=== PATIENT | male | born 1975 | race Caucasian/White ===

== ENCOUNTER 2024-01-19 20:47 | Emergency (ER) | payer OTHER, SELFPAY ==
[2024-01-19 20:48] VITALS: BP 152/90; PULSE 61; RESP 15; TEMP 36.7; O2SAT 100; BMI 25.7
--- NOTE | 2024-01-19 21:03 | CT_ITS ---
STUDY: CT ABDOMEN AND PELVIS WITHOUT CONTRAST REASON FOR EXAM: Male, 48 years old. RT FLANK PAIN RADIATION DOSAGE (If Supplied By Facility): CTDIvol = ( 6.90 ) mGy, DLP = ( 353.33 ) mGycm TECHNIQUE: Transaxial images were obtained from the dome of the diaphragm to the symphysis pubis without oral contrast, and without intravenous contrast. Sagittal and coronal images were reconstructed. Individualized dose optimization techniques were used for this CT. COMPARISON: None. FINDINGS: The visualized lung bases are unremarkable. The visualized portions of the heart are within normal limits. Normal liver. Normal gallbladder and extrahepatic biliary system. Normal spleen. Normal pancreas. Normal bilateral adrenal glands. Hydronephrosis of the right kidney with right hydroureter. Normal left kidney. Normal visualized stomach. Normal small intestine. Diverticulosis of the colon. The appendix is visualized and appears normal. Normal abdominal aorta. Normal inferior vena cava. Normal retroperitoneum. Wall thickening of the urinary bladder. 2 mm stone at the right UVJ. Normal abdominal wall. Normal osseous structures. CT/Abdomen/Pelvis without Cont IMPRESSION: Hydronephrosis of the right kidney with right hydroureter. Obstructive stone at the right UVJ. Wall thickening of the urinary bladder. Colonic diverticulosis. Electronically Signed: Cecilio Peraza DO at 22:09 EDT ,
--- NOTE | 2024-01-19 21:05 | EDS_ITS ---
HPI <COLLIN Peres - Last Filed: 01/19/24 22:13> History of Present Illness Chief Complaint: Flank Pain Narrative Narrative: 48-year-old male with no significant past medical history states around 1 PM he developed right flank pain that gradually worsened throughout the evening and is starting to wrap around the right side. He initially took Tums thinking it could be indigestion but this had no effect. He has no fever or chills, nausea or vomiting, or urinary symptoms. He reports a history of urethral stricture that was treated with a catheter by Dr. Durán in the past but has had no issues urinating since then. No history of kidney stones. PFSH <COLLIN Peres Last Filed: 01/19/24 22:13> [facility] Home Medications ?Medication ?Instructions ?Recorded ?Last Taken ?Type ondansetron 4 mg disintegrating 4 mg PO Q6H #12 tabs 01/19/24 Unknown Rx tablet oxycodone-acetaminophen 5 mg-325 1 tab PO Q6H PRN pain 3 days #12 01/19/24 Unknown Rx mg tablet (Percocet) tabs tamsulosin 0.4 mg capsule (Flomax) 0.4 mg PO DAILY 7 days #7 caps 01/19/24 Unknown Rx Allergy/AdvReac Type Severity Reaction Status Date / Time No Known Allergies Allergy Verified 01/19/24 20:49 Social History Smoking Status: Current every day smoker tobacco type: cigarettes ROS <COLLIN Peres Last Filed: 01/19/24 22:13> ROS ED ROS Narrative Constitutional: Negative for fever, chills, malaise. CVS: Negative for chest pain. Respiratory: Negative for shortness of breath. GI: Negative for abdominal pain, nausea, vomiting, diarrhea, constipation, melena, hematochezia. : Negative for dysuria, hematuria or frequency. EXAM <COLLIN Peres Last Filed: 01/19/24 22:13> Physical Exam Narrative Exam Narrative: CONST: Patient sitting in no acute distress. EYES: Normal inspection. NECK: Normal inspection. RESP: No respiratory distress, CTAB. CVS: Regular rate and rhythm, no murmur, no gallop. ABD: Soft and nontender, no guarding or rebound, nondistended. Back: Normal inspection, no CVA tenderness. SKIN: Color normal, no rash, warm, dry, intact. EXTREMITIES: Normal appearance, no pedal edema. NEURO: Alert and answering questions appropriately. PSYCH: Normal affect. Const Vital Signs: 01/19/24 20:48 Temperature 98.1 F Temperature Source Temporal Pulse Rate 61 Respiratory Rate 15 Blood Pressure 152/90 H Blood Pressure Mean 110 Pulse Ox 100 Oxygen Delivery Method Room Air <Dr. Jaison Barnhart DO - Last Filed: 01/19/24 22:21> Physical Exam Const Vital Signs: 01/19/24 20:48 Temperature 98.1 F Temperature Source Temporal Pulse Rate 61 Respiratory Rate 15 Blood Pressure 152/90 H Blood Pressure Mean 110 Pulse Ox 100 Oxygen Delivery Method Room Air MDM <COLLIN Peres - Last Filed: 01/19/24 22:13> MDM MDM Narrative Medical decision making narrative: Differential: Kidney stone, pyelonephritis, musculoskeletal Patient has acute right flank pain. He appears well and nontoxic. Vital signs stable. He looks slightly uncomfortable but has no reproducible tenderness of his abdomen or flank. Labs show white count of 14.3, normal electrolytes and renal function, and urinalysis has red blood cells but no infection. CT shows 2 mm right distal ureteral stone. Patient's pain is adequately controlled after IV Toradol and he did not want more medication as he would like to drive home. I prescribed Percocet, Zofran, and Flomax with instructions to increase fluids. Return precautions were discussed. He is established with urology if needed. He was discharged in stable condition. Lab Data Attestation: I reviewed the patient's lab results. Labs: Laboratory Results - last 24 hr 01/19/24 21:15 WBC 14.3 H RBC 4.77 Hgb 14.3 Hct 42.9 MCV 89.9 MCH 30.0 MCHC 33.3 RDW Std Deviation 39.8 RDW Coeff of Nieves 12.1 Plt Count 293 MPV 9.7 Immature Gran % (Auto) 0.400 Neut % (Auto) 85.0 H Lymph % (Auto) 9.5 L [place] % (Auto) 4.6 Eos % (Auto) 0.2 Baso % (Auto) 0.3 Absolute Neuts (auto) 12.1 H Absolute Lymphs (auto) 1.35 Nucleated RBC % 0 Sodium 139 Potassium 3.9 Chloride 103 Carbon Dioxide 30.0 Anion Gap 6 BUN 18 Creatinine 1.18 Estim Creat Clear Calc 85.86 Est GFR (MDRD) Af Amer 85 Est GFR (MDRD) Non-Af 70 BUN/Creatinine Ratio 15.3 Glucose 120 H Calcium 9.7 Urine Color Yellow Urine Clarity Sl. Cloudy Urine pH 8.0 Ur Specific [place] 1.010 Urine Protein Negative Urine Glucose (UA) Normal Urine Ketones 15 H Urine Occult Blood 150 H Urine Nitrite Negative Urine Bilirubin Negative Urine Urobilinogen Normal Ur Leukocyte Esterase Negative Urine RBC 10-25 SEEN Urine WBC 0 SEEN Ur Squamous Epith Cells 0-5 SEEN Amorphous Sediment 1+ PHOS Urine Bacteria 0 SEEN Urine Mucus 0 SEEN <Dr. Jaison Barnhart, DO - Last Filed: 01/19/24 22:21> MDM History & Record Review Discussion w/independent historian: Patient Lab Data Labs: Laboratory Results - last 24 hr 01/19/24 21:15 WBC 14.3 H RBC 4.77 Hgb 14.3 Hct 42.9 MCV 89.9 MCH 30.0 MCHC 33.3 RDW Std Deviation 39.8 RDW Coeff of [place] 12.1 Plt Count 293 MPV 9.7 Immature Gran % (Auto) 0.400 Neut % (Auto) 85.0 H Lymph % (Auto) 9.5 L [place] % (Auto) 4.6 Eos % (Auto) 0.2 Baso % (Auto) 0.3 Absolute Neuts (auto) 12.1 H Absolute Lymphs (auto) 1.35 Nucleated RBC % 0 Sodium 139 Potassium 3.9 Chloride 103 Carbon Dioxide 30.0 Anion Gap 6 BUN 18 Creatinine 1.18 Estim Creat Clear Calc 85.86 Est GFR (MDRD) Af Amer 85 Est GFR (MDRD) Non-Af 70 BUN/Creatinine Ratio 15.3 Glucose 120 H Calcium 9.7 Urine Color Yellow Urine Clarity Sl. Cloudy Urine pH 8.0 Ur Specific [place] 1.010 Urine Protein Negative Urine Glucose (UA) Normal Urine Ketones 15 H Urine Occult Blood 150 H Urine Nitrite Negative Urine Bilirubin Negative Urine Urobilinogen Normal Ur Leukocyte Esterase Negative Urine RBC 10-25 SEEN Urine WBC 0 SEEN Ur Squamous Epith Cells 0-5 SEEN Amorphous Sediment 1+ PHOS Urine Bacteria 0 SEEN Urine Mucus 0 SEEN Treatment and Re-Evaluation :: I have personally performed a face to face assessment of the patient and have reviewed the TONG Note. I performed a substantive portion of the visit including all aspects of the following. My [place] findings include: History is 48-year-old male presenting to the emergency room with sudden testicular pain and back pain. Patient states he felt a bit sick to his stomach at work after eating some pizza but the time he got home he was having significant pain. No history of kidney stones. He has a history of ureteral stricture is seen Dr. Durán. Exam is afebrile vital signs stable. Patient now appearing comfortably in the bed status post Toradol injection. No significant physical exam findings. Medical Decison Making appears to be a distal ureteral stone with some hydronephrosis. Noted some hematuria. White count 14.3 which I think is stress -induced. Normal creatinine. Patient will be discharged home with pain medication. Instructions to monitor for passing stone follow-up as needed return if worsening or concerns Discharge Plan Triage Chief Complaint: Flank Pain ED Midlevel Provider: Emmie Pearson ED Provider: Jaison Barnhart Dx/Rx/DC Orders Clinical Impression: Kidney stone on right side Instructions: ED Kidney Stone with Pain Prescriptions: New tamsulosin [Flomax] 0.4 mg capsule 0.4 mg PO DAILY 7 Days Qty: 7 0RF ondansetron 4 mg tablet,disintegrating 4 mg PO Q6H Qty: 12 0RF oxycodone-acetaminophen [Percocet] 5-325 mg tablet 1 tab PO Q6H PRN (Reason: pain) 3 Days Qty: 12 0RF Primary Care Provider: Care Physician,No Primary Referrals: Eddie Durán MD [Med Staff - Active Staff] - Care Physician,No Primary [Primary Care Provider] - Activity Restrictions/Additional Instructions: Drink plenty of fluids, in addition to Percocet you can take ibuprofen every 6 hours for pain control. Follow-up with urology. If you develop worsening pain, fever, or inability to urinate come back to the ER. Print Language: German Disposition Disposition: Home, Self Care
[2024-01-19 21:20] LABS: Bacteria 0 SEEN /hpf (None Seen); Mucous, Urine 0 SEEN /hpf (<or=2+); White Blood Cells 0 SEEN /hpf (0-5)
[2024-01-19 21:22] LABS: Absolute Lymphocyte Count 1.35 X10^3/uL (0.83-4.51); Absolute Neutrophil Count 12.1 X10^3/uL (2.0-7.7); Basophil# 0.04 X10^3/uL; Basophil% 0.3 % (0-1); Eosinophil# 0.03 X10^3/uL; Eosinophils% 0.2 % (0-5); Hematocrit 42.9 % (40-54); Hemoglobin 14.3 g/dL (13.0-16.5); Lymphocyte # 1.35 X10^3/ul (0.83-4.51); Lymphocyte % 9.5 % (19-41); Mean Corp Hgb Conc 33.3 g/dL (32-36); Mean Corpuscular Volume 89.9 fL (80-94); Mean Platelet Vol. 9.7 fl (6.2-12.0); Monocyte# 0.66 X10^3/uL; Monocyte% 4.6 % (0-10); NRBC Flagged by Analyzer 0 % (0-5); Neutrophil # 12.12 X10^3/uL (2.7-7.7); Platelet Count 293 K/mm3 (150-450); RBC Distribution Width CV 12.1 % (11.6-14.6); RBC Distribution Width SD 39.8 fl (35.1-43.9); Red Blood Count 4.77 M/mm3 (4.6-6.2); White Blood Count 14.3 K/mm3 (4.4-11.0)
[2024-01-19 21:23] LABS: Color, Urine Yellow (Yellow); Glucose, Dipstick Normal (Normal); Ketone-Dipstick 15 mg/dl (Negative); Leukocyte Esterase-Dipstick Negative /ul (Negative); Nitrite-Dipstick Negative (Negative); Occult Blood-Urine 150 /ul (Negative); Protein-Dipstick Negative (Negative); Urine Bilirubin Dipstick Negative (Negative); Urine Clarity Sl. Cloudy (Clear); Urine Urobilinogen Normal (Normal)
[2024-01-19] MEDS: Ketorolac 30 MG/ML Syringe IV (21:29)
[2024-01-19 21:31] LABS: Red Blood Cells-Urine 10-25 SEEN /hpf (0-5); Squamous Epithelial Cells - UA 0-5 SEEN /hpf (0-5)
[2024-01-19 21:32] LABS: Amorphous Sediment 1+ PHOS
[2024-01-19 21:35] LABS: Anion Gap 6 (5-15); BUN 18 mg/dL (7-18); BUN/Creat Ratio 15.3 RATIO (10-20); Calcium,Total 9.7 mg/dL (8.5-10.1); Chloride 103 mmol/L (98-107); Creatinine, Serum 1.18 mg/dL (0.70-1.30); EST Glomerular Filtration Rate 70 mL/min (>60); Est Glom Filt Rate - Afr Amer 85 mL/min (>60); Estimated Creatinine Clearance 85.86 ml/min; Glucose 120 mg/dL (74-106); Potassium 3.9 mmol/L (3.5-5.1); Sodium Level 139 mmol/L (136-145)
[2024-01-19 22:20] VITALS: BP 148/62; PULSE 75; RESP 16; TEMP 36.6; O2SAT 96
== END 2024-01-19 22:21 | disposition home or self-care (01) ==
PROVIDERS: Physician Assistant; Emergency Provider Emergency Medicine; Visit Provider Emergency Medicine
DX: N13.2 Hydronephrosis with renal and ureteral calculous obstruction (principal); F17.210 Nicotine dependence, cigarettes, uncomplicated
CPT/HCPCS: 74176; 80048; 81001; 85025; 96374; 96376; 99282; J7030; A4216